=== PATIENT | female | born 1980 | race Caucasian/White ===

== ENCOUNTER 2022-03-17 08:24 | Outpatient (CLI) | payer BC, SELFPAY ==
--- NOTE | 2022-03-17 09:35 | W.ANESCHARGE ---
Anesthesia Charges Start Date/Time Anesthesia Start Date: 03/17/22 Anesthesia Start Time: 09:00 Stop Date/Time Anesthesia Stop Date: 03/17/22 Anesthesia Stop Time: 09:35 Summary Emergency: No
[2022-03-17 09:53] LABS: Glucose, Point-of-Care* 137 mg/dl (60-115)
== END 2022-03-17 08:25 | disposition home or self-care (01) ==
LOC: OP CLINIC 08:25
PROVIDERS: PCP Family Medicine; Visit Provider Internal Medicine
DX: Z12.11 Encounter for screening for malignant neoplasm of colon (principal); K63.5 Polyp of colon; Z80.0 Family history of malignant neoplasm of digestive organs
CPT/HCPCS: 45380; 811; 82947; 88305; J2704

== ENCOUNTER 2022-08-11 14:53 | Outpatient (CLI) | payer BC, SELFPAY ==
[2022-08-11 22:18] LABS: Chloride* 100 mmol/L (96-114)
[2022-08-11 22:19] LABS: Albumin* 4.9 g/dL (3.3-5.0); Potassium* 3.6 mmol/L (3.6-5.1); Sodium* 137 mmol/L (135-149)
[2022-08-11 22:21] LABS: Cholesterol* 287 mg/dL (90-199)
[2022-08-11 22:22] LABS: Alanine Aminotransferase* 25 U/L (4-35); Alkaline Phosphatase* 69 U/L (40-150); Aspartate Amino Transferase* 24 U/L (12-35); Bilirubin Total* 0.6 mg/dL (0.1-1.5); Blood Urea Nitrogen* 14 mg/dL (5-24); Calcium* 9.8 mg/dL (8.4-10.6); Carbon Dioxide* 26 mmol/L (20-32); Creatinine* 0.6 mg/dL (0.5-1.5); Estimated Glomerular Filt Rate 114 ml/min; Glucose* 92 mg/dL (60-115); Total Protein* 8.2 g/dL (6.0-8.3); Triglycerides* 208 mg/dL (40-149)
[2022-08-11 22:23] LABS: HDL Cholesterol* 53 mg/dL (>=50); LDL Cholesterol Calculated 192 mg/dL (<100)
[2022-08-12 02:11] LABS: Creatinine Urine 17.5 mg/dL
[2022-08-12 02:16] LABS: Microalbumin Creatinine Ratio 50 mg/g (0-30); Microalbumin Urine < 1 mg/dL
== END 2022-08-11 14:54 | disposition home or self-care (01) ==
PROVIDERS: PCP Family Medicine; Visit Provider Family Medicine
DX: E11.9 Type 2 diabetes mellitus without complications (principal); I10 Essential (primary) hypertension; F41.9 Anxiety disorder, unspecified; Z13.6 Encounter for screening for cardiovascular disorders
CPT/HCPCS: 80053; 80061; 82043; 82570

== ENCOUNTER 2023-11-12 10:51 | Outpatient (CLI) | payer BC, SELFPAY | END 2023-11-12 10:52 | disposition home or self-care (01) | PROVIDERS: PCP Physician Assistant Medical; Visit Provider Physician Assistant Medical | DX: E11.9 Type 2 diabetes mellitus without complications (principal); E78.2 Mixed hyperlipidemia; I10 Essential (primary) hypertension | CPT/HCPCS: 80053; 80061; 82043; 82570; 84443 ==

== ENCOUNTER 2023-12-17 13:31 | Outpatient (CLI) | payer BC, SELFPAY ==
--- NOTE | 2023-12-17 14:00 | MM_ITS ---
Patient: LLOYD DOUGLAS Facility:?[facility] Patient ID:?[id number] Site Patient ID:?[id number]. Site :?[id number] Study:?XRay-Breast Bilateral 3D W/CAD-12/17/2023 2:01:16 PM Ordering Physician:Neville Final Report: BILATERAL SCREENING MAMMOGRAM WITH COMPUTER-AIDED DETECTION AND TOMOSYNTHESIS TECHNIQUE: CC and MLO views were obtained. These mammographic images have been obtained using full-field digital technique. These mammographic images were interpreted with the benefit of computer-aided detection. Breast Tomosynthesis was used in this interpretation. COMPARISON FILM: 01/03/22. FINDINGS: The breasts are almost entirely fatty. IMPRESSION: There is no radiographic evidence for malignancy. ASSESSMENT: BI-RADS Category 1: Negative RECOMMENDATION: Routine screening mammogram in 1 year. A lay language report of this examination will be provided to the patient. David Garner M.D. Diagnostic Radiologist [email or web address] DSM/sp R& Transcribed: 2:06 p.m. SP/Dictated by: David Garner MD @ 12/18/2023 8:59:00 AM Signed by:?David Garner MD @12/18/2023 2:34:20 PM (Electronic Signature)
== END 2023-12-17 13:32 | disposition home or self-care (01) ==
LOC: MAMMO 13:31
PROVIDERS: PCP Physician Assistant Medical; Visit Provider Physician Assistant Medical
DX: Z12.31 Encounter for screening mammogram for malignant neoplasm of breast (principal)
CPT/HCPCS: 77063; 77067

== ENCOUNTER 2024-10-31 09:47 | Outpatient (CLI) | payer BC, SELFPAY | END 2024-10-31 09:48 | disposition home or self-care (01) | LOC: NFLDREF 11-03 02:04 | PROVIDERS: PCP Physician Assistant Medical; Referring Provider Physician Assistant Medical; Visit Provider Physician Assistant Medical | DX: R79.89 Other specified abnormal findings of blood chemistry (principal); E78.2 Mixed hyperlipidemia; E11.65 Type 2 diabetes mellitus with hyperglycemia; I10 Essential (primary) hypertension; Z79.84 Long term (current) use of oral hypoglycemic drugs | CPT/HCPCS: 80053; 80061; 82043; 82570; 84443 ==

== ENCOUNTER 2024-12-17 14:44 | Outpatient (CLI) | payer BC, SELFPAY ==
--- NOTE | 2024-12-17 15:00 | CRLHL7_ITS ---
For Patients: As a result of the Century Cures Act, medical imaging exams and procedure reports are released immediately into your electronic medical record. You may view this report before your referring provider. If you have questions, please contact your health care provider. INDICATION: BILATERAL SCREENING MAMMOGRAM, ASYMPTOMATIC 44 Y/O FEMALE COMPARISON: 12/07/23, 01/03/22 TECHNIQUE: CC and MLO views were obtained. These mammographic images have been obtained using full-field digital technique. These mammographic images were interpreted with the benefit of computer aided detection and tomosynthesis. BREAST COMPOSITION: The breasts are almost entirely fatty. FINDINGS: No suspicious findings. ASSESSMENT: BI-RADS 1 Negative RECOMMENDATION: Annual screening mammogram. A lay language report of this examination will be provided to the patient. Dictated by: David Garner MD @ 12/26/2024 12:50:45 (Electronically Signed)
== END 2024-12-17 14:45 | disposition home or self-care (01) ==
LOC: MAMMO 14:46
PROVIDERS: PCP Physician Assistant Medical; Visit Provider Physician Assistant Medical
DX: Z12.31 Encounter for screening mammogram for malignant neoplasm of breast (principal)
CPT/HCPCS: 77063; 77067

== ENCOUNTER 2025-02-13 13:58 | Outpatient (CLI) | payer BC, SELFPAY | END 2025-02-13 13:59 | disposition home or self-care (01) | LOC: NFLDREF 02-16 08:43 | PROVIDERS: PCP Physician Assistant Medical; Referring Provider Physician Assistant Medical; Visit Provider Physician Assistant Medical | DX: G44.209 Tension-type headache, unspecified, not intractable (principal); E11.9 Type 2 diabetes mellitus without complications; E78.2 Mixed hyperlipidemia | CPT/HCPCS: 80061; 82728 ==

== ENCOUNTER 2025-03-16 09:47 | Outpatient (CLI) | payer BC, SELFPAY ==
--- NOTE | 2025-03-16 10:52 | P.ANES_ITS ---
Anesthesia Charges Start Date/Time Anesthesia Start Date: 03/16/25 Anesthesia Start Time: 10:25 Stop Date/Time Anesthesia Stop Date: 03/16/25 Anesthesia Stop Time: 10:51 Coding CPT Codes CPT Codes: MIRI LWR INTST NDSC NOS - 45530 ([id number]) P2 - PATIENT W/MILD SYST DISEASE, QK - INSURANCE EXAMINING CLERK 2-4 CNCRNT ANES PROC, QX - ROLL TRUCKER SVC W/ MD MED DIRECTION
--- NOTE | 2025-03-16 10:52 | W.ANESCHARGE ---
Anesthesia Charges Start Date/Time Anesthesia Start Date: 03/16/25 Anesthesia Start Time: 10:25 Stop Date/Time Anesthesia Stop Date: 03/16/25 Anesthesia Stop Time: 10:51 Coding CPT Codes CPT Codes: MIRI LWR INTST NDSC NOS - 84634 ([id number]) P2 - PATIENT W/MILD SYST DISEASE, QK - CAKE INSPECTOR 2-4 CNCRNT ANES PROC, QX - EMULSION COATER SVC W/ MD MED DIRECTION
--- NOTE | 2025-03-16 10:53 | P.ANES_ITS ---
Anesthesia Charges Start Date/Time Anesthesia Start Date: 03/16/25 Anesthesia Start Time: 10:25 Stop Date/Time Anesthesia Stop Date: 03/16/25 Anesthesia Stop Time: 10:51 Coding CPT Codes CPT Codes: MIRI LWR INTST NDSC NOS - 07117 ([id number]) P2 - PATIENT W/MILD SYST DISEASE, QK - WEIGHT CHECKER 2-4 CNCRNT ANES PROC, QX - COMMUNITY RELATIONS OFFICER SVC W/ MD MED DIRECTION
--- NOTE | 2025-03-16 10:53 | W.ANESCHARGE ---
Anesthesia Charges Start Date/Time Anesthesia Start Date: 03/16/25 Anesthesia Start Time: 10:25 Stop Date/Time Anesthesia Stop Date: 03/16/25 Anesthesia Stop Time: 10:51 Coding CPT Codes CPT Codes: MIRI LWR INTST NDSC NOS - [id number] ([id number]) P2 - PATIENT W/MILD SYST DISEASE, QK - TURPENTINE FARMER 2-4 CNCRNT ANES PROC, QX - TEACHER OF THE DEAF SVC W/ MD MED DIRECTION
== END 2025-03-16 09:48 | disposition home or self-care (01) ==
LOC: OP CLINIC 09:48
PROVIDERS: PCP Physician Assistant Medical; Visit Provider Surgery
DX: Z12.11 Encounter for screening for malignant neoplasm of colon (principal); Z80.0 Family history of malignant neoplasm of digestive organs; Z86.0100 Personal history of colon polyps, unspecified; D12.8 Benign neoplasm of rectum
CPT/HCPCS: 00811; 00812; 45385; 88305; J2704

== ENCOUNTER 2025-04-17 10:03 | Outpatient (CLI) | payer BC, SELFPAY | END 2025-04-17 10:04 | disposition home or self-care (01) | LOC: NFLDREF 04-22 11:56 | PROVIDERS: PCP Physician Assistant Medical; Visit Provider Physician Assistant Medical | DX: E11.65 Type 2 diabetes mellitus with hyperglycemia (principal); R79.0 Abnormal level of blood mineral | CPT/HCPCS: 82728 ==

== ENCOUNTER 2025-04-21 13:50 | Outpatient (CLI) | payer BC, SELFPAY | END 2025-04-21 13:51 | disposition home or self-care (01) | LOC: FRMREF 13:53 | PROVIDERS: PCP Physician Assistant Medical; Visit Provider Physician Assistant Medical | DX: R79.89 Other specified abnormal findings of blood chemistry (principal) | CPT/HCPCS: 81256 ==

== ENCOUNTER 2025-04-23 08:11 | Outpatient (CLI) | payer BC, SELFPAY ==
--- NOTE | 2025-04-23 08:15 | CRLHL7_ITS ---
For Patients: As a result of the Century Cures Act, medical imaging exams and procedure reports are released immediately into your electronic medical record. You may view this report before your referring provider. If you have questions, please contact your health care provider. INDICATION: ABNORMAL FINDINGS OF BLOOD CHEMISTRY COMPARISON: none TECHNIQUE: Real time batista scale imaging and color Doppler analysis was performed of the right upper quadrant. FINDINGS: The liver measures 20.1 cm. Liver echotexture is diffusely increased. There is a normal appearance of the hepatic IVC and proximal abdominal aorta. There is no evidence of ascites. The gallbladder is of normal size and there is no evidence of intraluminal stones or sludge. The gallbladder wall measures 1.6 mm in thickness. The common bile duct is of normal size and measures 4.7 mm in diameter at the level of the tori hepatis. The pancreas appears normal. There is no evidence of a stone or hydronephrosis within the right kidney. The right kidney measures 13.6 cm in length. IMPRESSION: Hepatomegaly with severe hepatic steatosis. Remainder normal. Dictated by David Garner MD @ 04/23/2025 2:30:09 PM (Electronically Signed)
== END 2025-04-23 08:12 | disposition home or self-care (01) ==
LOC: US 08:12
PROVIDERS: PCP Physician Assistant Medical; Visit Provider Physician Assistant Medical
DX: R79.89 Other specified abnormal findings of blood chemistry (principal); R16.0 Hepatomegaly, not elsewhere classified; K76.0 Fatty (change of) liver, not elsewhere classified
CPT/HCPCS: 76705